=== PATIENT | female | born 1955 | race Caucasian/White ===

== ENCOUNTER 2020-03-26 16:57 | Emergency (ER) | payer OTHER ==
[~2020-03-26] VITALS: Ht 152.4 cm; Wt 74.8 kg
--- NOTE | 2020-03-26 17:13 | NUR ---
patient came in to the er c/o LFA pain s/p trip and fall. On room air, breathing evenly and unlabored. connected to the monitor and pulse ox. kept comfortable, will continue to monitor accordingly.
[2020-03-26] MEDS ORDERED: CALC500T51 MT (17:48)
[2020-03-26] MEDS ORDERED: ALEN70TA6 MT (17:48)
[2020-03-26] MEDS ORDERED: AMLO5TAB9 MT (17:48)
[2020-03-26] MEDS ORDERED: OLME1TAB82 MT (17:48)
[2020-03-26] MEDS ORDERED: GABA300C MT (17:48)
[2020-03-26] MEDS ORDERED: MEMA5TAB42 MT (17:48)
[2020-03-26] MEDS ORDERED: HYDR-4076 MT (17:48)
[2020-03-26] MEDS ORDERED: ZOLP5TAB8 MT (17:48)
[2020-03-26] MEDS ORDERED: OMEP40CA13 MT (17:48)
[2020-03-26] MEDS ORDERED: CLON0.1T MT (17:48)
[2020-03-26] MEDS ORDERED: ERGO500014 MT (17:48)
[2020-03-26] MEDS ORDERED: ASPI-1152 MT (17:48)
[2020-03-26] MEDS ORDERED: SITA1TAB2 MT (17:48)
--- NOTE | 2020-03-26 19:09 | NUR ---
report given to nurse bear for benito
--- NOTE | 2020-03-26 19:09 | NUR ---
PT HAS A SLING IN PLACE ON LUE. PT IS AWAITING FURTHER INSTRUCTIONS.
--- NOTE | 2020-03-26 19:36 | NUR ---
EMMANUEL TAYLOR IS AT THE BEDSIDE SPEAKING TO THE PT RE: THE POC. EMMANUEL TAYLOR SPOKE TO ORTHO RE: PT'S FX.
--- NOTE | 2020-03-26 19:54 | NUR ---
SPOKE WITH JUAN LOGAN FROM [facility] REGARDING POSSIBLE TRANSFER. WILL CALL BACK WITH UPDATE
--- NOTE | 2020-03-26 20:01 | NUR ---
PT IS REC'ING A LONG ARM POSTERIOR SPLINT TO THE LUE.
--- NOTE | 2020-03-26 20:05 | NUR ---
SPOKE WITH JUAN LOGAN FROM [facility]. PER DR. AMADOR, UNABLE TO ACCEPT PT. NEEDS HAND SPECIALIST
--- NOTE | 2020-03-26 20:10 | NUR ---
SERGIO CHEN SPEAKING WITH ATTENDING FROM [facility]
--- NOTE | 2020-03-26 20:21 | NUR ---
CALLED [facility]. WILL FAX OVER CLINICALS.
--- NOTE | 2020-03-26 20:21 | NUR ---
SPOKE TO [facility] EVELYN PARRY, STATED SHOULD CALL TRANSFER CENTER TO SEE IF THEY SHOULD TRANSFER ER TO ER OR ER TO [facility] BED.
--- NOTE | 2020-03-26 20:27 | NUR ---
SPOKE WITH JENNIFER FROM [facility] TRANSFER LINE. WILL FAX CLINICAL INFORMATION PER REQUEST.
--- NOTE | 2020-03-26 20:29 | NUR ---
FAXED CLINICALS TO [facility].
--- NOTE | 2020-03-26 20:52 | NUR ---
PER [facility] INTAKE, UNABLE TO ACCEPT PATIENT
--- NOTE | 2020-03-26 21:59 | NUR ---
CALLED [facility] REGARDING POSSIBLE TRANSFER, WAITING FOR CALL BACK
--- NOTE | 2020-03-26 22:01 | NUR ---
SPOKE WITH AVEL FROM [facility], UNABLE TO ACCEPT PATIENT
--- NOTE | 2020-03-26 23:05 | NUR ---
Patient does not wish to proceed with medical care recommended by [facility]. Patient given information related to possible complications, up to and including , which could occur as a result of leaving the hospital at this time. Patient and son verbalized understanding of risks involved due to leaving against medical advice. Son has signed AMA form and will provide ride to the pt to a different hospital.
[2020-03-26 23:10] VITALS: BP 157/90
== END 2020-03-26 23:10 | disposition left against medical advice (07) ==
LOC: ER 16:57
DX: S52.272A Monteggia's fracture of left ulna, initial encounter for closed fracture (principal); S52.125A Nondisplaced fracture of head of left radius, initial encounter for closed fracture; Z79.899 Other long term (current) drug therapy; W01.0XXA Fall on same level from slipping, tripping and stumbling without subsequent striking against object, initial encounter; Y93.89 Activity, other specified; Y92.89 Other specified places as the place of occurrence of the external cause; Y99.8 Other external cause status
CPT/HCPCS: 73090-TC